=== PATIENT | female | born 1955 | race Caucasian/White ===

== ENCOUNTER → 2018-03-18 | Outpatient (CLI) | payer MEDICARE ==
[~2018-03-18] MED LIST: IOPAMIDOL 370 MG/ML 200 ML INFUS..BTL INJ ONE; SODIUM CHLORIDE 0.9% 250ML 250 ML ONE
[2018-03-18 08:32] LABS: BLOOD UREA NITROGEN 11 mg/dL (7-26); BUN/CREATININE RATIO 13 (6-25); CREATININE, SERUM 0.88 mg/dL (0.57-1.11); EST GLOMERULAR FILTRATION RATE > 60 ML/MIN (60-)
--- NOTE | 2018-03-18 10:09 | Diagnostic Imaging Report ---
PROCEDURE: CT ABDOMEN \T\ PELVIS W/WO CONTRAST, HEMATURIA PROTOCOL TECHNIQUE: The abdomen and pelvis were scanned utilizing a multidetector helical scanner from the diaphragm to the lesser trochanter before and after the IV administration of 100 cc of Isovue 370 and the oral administration of 900 cc of water. Hematuria protocol was performed. Coronal and sagittal multiplanar reformations were obtained. COMPARISON: None. INDICATIONS: GROSS HEMATURIA FINDINGS: LOWER THORAX: Motion artifacts limits evaluation for lung nodules. Patchy dependent atelectasis. Coronary atherosclerosis. HEPATOBILIARY: No focal hepatic lesions. No biliary ductal dilatation. SPLEEN: No splenomegaly. PANCREAS: No focal masses or ductal dilatation. Fatty atrophy of the pancreas. ADRENALS: No adrenal nodules. KIDNEYS/URETERS: No hydronephrosis or solid mass lesions. There is a 6 mm left lower pole renal stone. No evidence of urothelial lesion on delayed images. PELVIC ORGANS/BLADDER: Unremarkable. No evidence of bladder lesion. PERITONEUM / RETROPERITONEUM: No free air or fluid. LYMPH NODES: No lymphadenopathy. VESSELS: Unremarkable. GI TRACT: No distention or wall thickening. Colonic diverticulosis without CT evidence of diverticulitis. Fecalization of small bowel loops without evidence of obstruction, which may reflect slow transit. Small hiatal hernia. BONES AND SOFT TISSUES: No acute bony findings. IMPRESSION: A 6 mm left lower pole renal stone. No evidence of ureteral stone, hydronephrosis, or mass lesion. Dictated by: SHAYAN NATHAN M.D. on 03/18/2018 at 10:15 Electronically approved by: SHAYAN NATHAN M.D. on 03/18/2018 at 10:15
== END ==
LOC: CT 07:25
PROVIDERS: ATTEND Urology
DX: R31.0 Gross hematuria (principal)
CPT/HCPCS: 36415; 74178; 82565; 84520; J7050; Q9967

== ENCOUNTER → 2018-04-06 | Outpatient (CLI) | payer MEDICARE ==
[~2018-04-06] MED LIST changes: +ANDROGEL2.5 GM TOP; +CEFTRIAXONE SOD 1 GM VIAL ONE; +EFFEXOR XR75 MG; -IOPAMIDOL 370 MG/ML 200 ML INFUS..BTL INJ ONE; +LISINOPRIL10 MG PO; +RISPERIDONE1 MG; -SODIUM CHLORIDE 0.9% 250ML 250 ML ONE; +VITAMIN D400 UNIT PO; +[UNRECOGNIZED DRUG - OTHER]; +[UNRECOGNIZED DRUG - OTHER] PO
[2018-04-06 12:29] LABS: BASOPHILS # (AUTO) 0.1 (0.0-0.1); BASOPHILS % 0.3 % (0.0-1.0); EOSINOPHILS # (AUTO) 0.3 (0.0-0.4); EOSINOPHILS % 1.9 % (0.0-6.0); HEMATOCRIT 45.9 % (38.2-49.6); HEMOGLOBIN 15.1 g/dL (12.0-16.0); LYMPHOCYTES # (AUTO) 2.5 (1.0-3.2); LYMPHOCYTES % 16.7 % (18.0-39.1); MEAN CORPUSCULAR HEMOGLOBIN 29.2 pg (28-32); MEAN CORPUSCULAR HGB CONC 32.9 g/dL (31-35); MEAN CORPUSCULAR VOLUME 88.6 fL (81-99); MONOCYTES % 6.5 % (4.4-11.3); NEUTROPHILS # (AUTO) 11.2 (2.1-6.9); NEUTROPHILS % 73.9 % (38.7-80.0); PLATELET COUNT 327 x10e3/uL (140-360); RED BLOOD COUNT 5.18 x10e6/uL (4.3-5.7); RED CELL DISTRIBUTION WIDTH 13.9 % (11.7-14.4)
[2018-04-06 12:51] LABS: ANION GAP 16.2 mmol/L (8-16); BLOOD UREA NITROGEN 13 mg/dL (7-26); BUN/CREATININE RATIO 15 (6-25); CALCIUM 9.5 mg/dL (8.4-10.2); CARBON DIOXIDE 26 mmol/L (22-29); CHLORIDE 96 mmol/L (98-107); CREATININE, SERUM 0.85 mg/dL (0.72-1.25); EST GLOMERULAR FILTRATION RATE > 60 ML/MIN (60-); GLUCOSE 121 mg/dL (74-118); POTASSIUM 4.2 mmol/L (3.5-5.1); SODIUM 134 mmol/L (136-145)
== END ==
LOC: RAD 10:42 → OR 10:42 → EDSEX 10:42 → EDSTATUS 14:00
PROVIDERS: ATTEND Urology
DX: Z01.818 Encounter for other preprocedural examination (principal); N20.0 Calculus of kidney; Z53.8 Procedure and treatment not carried out for other reasons
CPT/HCPCS: 36415; 80048; 82948; 85025; 93005; J0696

== ENCOUNTER → 2018-11-02 | Outpatient (CLI) | payer MEDICARE ==
[~2018-11-02] MED LIST changes: -CEFTRIAXONE SOD 1 GM VIAL ONE; +METFORMIN HCL500 MG PO
--- NOTE | 2018-11-02 10:55 | Diagnostic Imaging Report ---
Exam: Abdominal film Clinical History: Renal calculus Comparison: None. DISCUSSION: Questionable 4-5 mm calculus projecting over the lower pole of the left renal shadow. No calcifications project over the right renal shadow or expected ureteral courses. Atherosclerotic vascular calcifications within the pelvis. Bowel gas pattern is nonobstructive. Regional skeletal structures are intact. No organomegaly. IMPRESSION: Questionable 4-5 mm left lower pole renal calculus versus overlying bowel contents. Signed by: Dr. Andrei Corcoran M.D. on 11/02/2018 10:52 AM
== END ==
LOC: RAD 10:17
PROVIDERS: ATTEND Urology
DX: N20.0 Calculus of kidney (principal)
CPT/HCPCS: 74018

== ENCOUNTER → 2018-12-15 | Outpatient (CLI) | payer OTHER ==
--- NOTE | 2018-12-15 09:22 | Diagnostic Imaging Report ---
Exam: Testicular ultrasound. Clinical History: Chronic pain. Findings: Sonographic evaluation of the testicles. Both testes are normal in echogenicity and size without intratesticular mass. Negative for hydrocele or varicocele. Both epididymides are normal in appearance. Unremarkable Doppler flow to the testicle and epididymis bilaterally. The right testes measures 5.1 x 2.3 x 3.4 cm and the left testes measures 5.0 x 2.2 x 3.6 cm. The right epididymis measures 0.9 x 0.5 x 0.6 cm and the left epididymis measures 1.0 x 0.7 x 0.7 cm. Impression: Unremarkable testicular ultrasound. Signed by: Dr. Rose Marie Baker MD on 12/15/2018 9:19 AM
== END ==
LOC: US 07:48
PROVIDERS: ATTEND Urology
DX: N50.812 Left testicular pain (principal); N50.811 Right testicular pain; G89.29 Other chronic pain
CPT/HCPCS: 76870; 93976

== ENCOUNTER → 2019-01-23 | Outpatient (CLI) | payer MEDICARE ==
--- NOTE | 2019-01-23 12:37 | Diagnostic Imaging Report ---
Exam: KUB - 2 views Clinical History: Renal calculi Comparison: KUB of 11/02/2018 Findings: A 6 mm high density structure projecting over the lower pole of the left kidney may represent renal calculus versus bowel contents. Nonobstructive bowel gas pattern. Increased stool burden in the rectum. Osseous structures appear unremarkable. Impression: Possible 6 mm left lower pole renal calculus. Increased rectal stool burden. No evidence of obstruction. Signed by: Christopher Fountain MD on 01/23/2019 12:33 PM
== END ==
LOC: RAD 11:19
PROVIDERS: ATTEND Urology
DX: N20.0 Calculus of kidney (principal)
CPT/HCPCS: 74018

== ENCOUNTER → 2019-06-23 | Outpatient (CLI) | payer MEDICARE ==
--- NOTE | 2019-06-23 09:46 | Diagnostic Imaging Report ---
Exam: KUB - 3 views Clinical History: Renal calculus. Comparison: None. Findings: Exam somewhat limited by body habitus. There is a 6 mm calcification overlying the left lower pole kidney, similar to the prior study. Nonobstructive bowel gas pattern. Moderate amount of stool in the colon. No evidence of free intraperitoneal air. No acute bony abnormality. Impression: Similar appearance of 6 mm calcification overlying the left lower pole kidney, likely renal stone. Signed by: Dr. Rose Marie Baker MD on 06/23/2019 9:43 AM
== END ==
LOC: RAD 08:54
PROVIDERS: ATTEND Urology
DX: N20.0 Calculus of kidney (principal)
CPT/HCPCS: 74018

== ENCOUNTER → 2019-09-21 | Outpatient (CLI) | payer MEDICARE, OTHER ==
--- NOTE | 2019-09-21 14:38 | Diagnostic Imaging Report ---
EXAM: Abdomen Radiograph 1 View(s) INDICATION: ^[id number] ^[id number] ^CALCULUS OF KIDNEY COMPARISON: 06/23/2019 FINDINGS: Nonobstructive bowel gas pattern. Normal form stool within the colon. Unchanged 6 mm calcific density that projects over the left mid kidney, likely a renal calculus. No acute osseous abnormality. IMPRESSION: Unchanged 6 mm presumed left intrarenal calculus. Signed by: Juan Antonio Ybarra MD on 09/21/2019 2:35 PM
== END ==
LOC: RAD 13:53
PROVIDERS: ATTEND Urology
DX: N20.0 Calculus of kidney (principal)
CPT/HCPCS: 74018